=== PATIENT | male | born 2000 | race Two or more races ===

== ENCOUNTER 2025-09-27 10:33 | Emergency (ER) | payer SELFPAY ==
[2025-09-27 10:30] VITALS: BP 144/95; PULSE 79; PULSE 89; RESP 18; TEMP 37.2; O2SAT 97; BMI 35.4
--- NOTE | 2025-09-27 10:55 | XR_ITS ---
PROCEDURE INFORMATION: Exam: XR Left Hand Exam date and time: 09/27/2025 10:59 AM Age: 24 years old Clinical indication: Injury or trauma; Other: Lacteraction; Work related; Right; Injury date: 09/27/2025; Injury details: Laceration to hand with metal at worksite TECHNIQUE: Imaging protocol: Radiologic exam of the left hand. Views: 3 or more views. Total images: 3 COMPARISON: No relevant prior studies available. FINDINGS: Bones/joints: No evidence of acute fracture or dislocation. Soft tissues: Mild soft tissue swelling. IMPRESSION: 1. No evidence of acute fracture or dislocation. 2. Mild soft tissue swelling.
[2025-09-27] MEDS: ONDANSETRON 4MG/2ML VIAL 4 MG IV (11:00)
[2025-09-27] MEDS: MORPHINE 4MG/ML SYRINGE 4 MG IV (11:00)
[2025-09-27] MEDS: LACTATED RINGERS 1000ML 1,000 ML 999 ML IV (11:04)
--- NOTE | 2025-09-27 11:09 | ED_ITS ---
Discharge Plan Disposition Patient Disposition: Home, Self-Care Referrals Follow up/Referrals: Christopher Capone DO [Staff Physician, Orthopedics] - See instructions Provider,Reina, [Primary Care Provider, Medical] - See instructions Activity Restrictions/Add. Instructions Additional Instructions/Restrictions: Please follow-up with orthopedic surgery clinic in 1 to 2 weeks as discussed. Use soap and water antibiotic ointment for wound management. Clinical Impressions Clinical Impression: Hand laceration Stand Alone Forms Stand Alone Forms: Work/School Release Instructions Patient Instructions: DI for Laceration Repair Print Language Print Language: Kenyan Discharge ED Provider: Yan Lanier General Adult HPI General Chief complaint: Wound/Laceration Stated complaint: Laceration Time Seen by Provider: 09/27/25 11:02 Mode of Arrival: EMS Source of Information: Patient and EMS Description of Symptoms (Recalled from ER Triage Doc. by RN): EMS was called out for pt with a laceration to the palm of his left hand. 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 pt reports that the metal was sylvia. pt reports that he is up to date on his tetanus vaccination. History of Present Illness HPI narrative: 24-year-old male presenting to the emergency department with a laceration to his hand. 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 He has been able to movement no loss of sensation at [employer]. Was bleeding significantly was brought in by EMS. States that he is up-to-date with his tetanus. History was obtained using a clip loading machine feeder. Related Data Allergies Allergy/AdvReac Type Severity Reaction Status Date / Time No Known Allergies Allergy Verified 09/27/25 11:01 [facility] Disclaimer: The information contained in this section may have been updated after the patient was seen, as this information can be updated by other users. Social History Smoking Status: Never smoker alcohol intake: never current occupational status: other Travel in the last 8 weeks?: None ROS Obtained: Yes All systems reviewed & no additional complaints except as documented Physical Exam General General appearance: alert Respiratory Respiratory exam: Present normal lung sounds bilaterally Cardiovascular Cardiovascular exam: Present regular rate Expanded Upper Extremity Exam Left: Hand L/R front image: 2 1. laceration (Deep tissues are involved patient has normal flexion extension and opposition of the thumb venous oozing noted) Neurological Exam Neurological exam: Present alert and oriented X3 Medical Decision Making Medical Records Screening: Per USPSTF and CDC recommendations, given the prevalence of disease in our region, it is our hospital?s policy to screen for HIV and viral Hepatitis for all patients aged 18 and over and those with ongoing risk factors. [place] Inquiry Pt receiving controlled substance: No Vital Signs: 09/27/25 10:30 09/27/25 10:30 Temperature 98.9 F Temperature Source Oral Pulse Rate 79 Pulse Rate [Right] 89 Respiratory Rate 18 Blood Pressure 144/95 H Blood Pressure [Right Arm] 144/95 H Blood Pressure Mean [Right Arm] 111 Blood Pressure Source [Right Arm] Automatic Cuff Blood Pressure Position [Right Arm] Supine 02 Sat by Pulse Oximetry 97 97 Oxygen Delivery Method Room Air Orders (Tests/Meds): ED MEDICATIONS Generic Name Dose Route Start Last Admin Trade Name Freq PRN Reason Stop Dose Admin Lactated Ringer's 1,000 mls @ 999 mls/hr 09/27/25 11:00 09/27/25 11:04 Lactated Ringer's 1000 Ml Bag IV 09/27/25 12:00 999 mls/hr .[id number] SERGIO Administration Discontinued Medications Generic Name Dose Route Start Last Admin Trade Name Freq PRN Reason Stop Dose Admin Cephalexin HCl 500 mg 09/27/25 10:55 09/27/25 11:05 Cephalexin 500mg Capsule PO 09/27/25 10:56 500 mg ONCE ONE Administration Morphine Sulfate 4 mg 09/27/25 10:55 09/27/25 11:00 Morphine 4mg/Ml Syringe IV 09/27/25 10:56 4 mg ONCE ONE Administration Ondansetron HCl 4 mg 09/27/25 10:55 09/27/25 11:00 Ondansetron 4mg/2ml Vial IV 09/27/25 10:56 4 mg ONCE ONE Administration ORDERS Category Date Time Status Hand XR left minimum 3 views [XR hand LT min 3V] Stat Exams 09/27/25 10:55 Ordered Medical Decision Narrative: 24-year-old with above history and physical. Patient has a large laceration on the medial aspect of the thenar eminence. Patient has flexion extension and opposition intact no obvious tendon laceration or arterial injury or neurologic abnormality. Wound was cleaned and irrigated prophylactic Keflex was given given the contamination of the nature of the wound. Tetanus is up-to-date. Deep and superficial sutures were placed. Procedure was performed by SALINAS Perez with my direct supervision. Wound management and return precautions are emphasized Keflex prophylactically will be given. Patient be discharged in stable condition x-ray will be obtained also to make sure is no underlying fracture over foreign body contamination. Procedures Laceration Laceration 1: Site: hand Side (If applicable): left Size (cm): 5 Description: linear Local Anesthetic: lidocaine 1% and with epi Amount of anesthesia used (mL): 10 Pre-repair: wound explored and irrigated extensively Skin layer closed with: nylon Size (cm): 3-0 Number of sutures: 7 Technique: simple, interrupted Subcutaneous layer closed with: vicryl Size: 3-0 Number of sutures: 3 Technique: simple, interrupted Critical Care Critical Care Time Critical Care Time: No
[2025-09-27 11:26] VITALS: BP 138/93; PULSE 85; O2SAT 97
[2025-09-27 11:37] VITALS: BP 138/93; PULSE 88; RESP 18; TEMP 37.2; O2SAT 97
== END 2025-09-27 11:50 | disposition home or self-care (01) ==
PROVIDERS: Emergency Provider Student in an Organized Health Care Education/Training Program
DX: S61.412A Laceration without foreign body of left hand, initial encounter (principal); W26.8XXA Contact with other sharp object(s), not elsewhere classified, initial encounter
CPT/HCPCS: 12042; 73130; 96361; 96374; 96375; 99284; J2004; J2270; J2405; J7120